=== PATIENT | female | born 1985 | race African-American/Black ===

== ENCOUNTER 2016-12-04 13:47 | Emergency (ER) | payer SELFPAY ==
[~2016-12-04] VITALS: Ht 170.2 cm; Wt 110.0 kg
[2016-12-04 13:57] VITALS: BP 124/80
== END 2016-12-04 16:03 | disposition home or self-care (01) ==
LOC: EDBD → ER 14:02 → EDBD 14:02 → ER 16:03
DX: Z76.0 Encounter for issue of repeat prescription (principal); F20.9 Schizophrenia, unspecified
CPT/HCPCS: 99283

== ENCOUNTER 2016-12-04 19:10 | Emergency (ER) | payer SELFPAY ==
[~2016-12-04] VITALS: Ht 170.2 cm; Wt 80.0 kg
[2016-12-04] MEDS ORDERED: LORAZEPAM 2MG/ML CPJ IV STA (19:29)
[2016-12-04] MEDS ORDERED: SODIUM CHLORIDE 0.9% 1,000 ML IV ONE (19:29)
[2016-12-04] MEDS ORDERED: LORAZEPAM 2MG/ML CPJ IM ONE (19:45)
[2016-12-04 21:15] VITALS: BP 128/76
[2016-12-04] MEDS ORDERED: MIDAZOLAM HCL 2 MG/2 ML VIAL IM ONE (21:15)
[2016-12-04 23:08] LABS: BASOPHILS % 0.3 % (0.0-2.0); EOSINOPHILS % 0.1 % (0.0-5.0); HEMATOCRIT. 34.9 % (36.0-48.0); HEMOGLOBIN. 11.7 g/dL (12.0-16.0); LYMPHOCYTES % 19.9 % (20.0-50.0); MEAN CORPUSCULAR HEMOGLOBIN 29.4 pg (28.0-32.0); MEAN CORPUSCULAR VOLUME 87.7 fL (81.0-99.0); MEAN PLATELET VOLUME 8.9 fl (7.4-10.4); NEUTROPHILS % 68.7 % (40.0-76.0); PLATELET 266 x1000/uL (130-400); RED BLOOD CELL COUNT 3.98 mill/uL (4.2-5.4); RED CELL DISTRIBUTION WIDTH 13.1 % (11.6-14.6)
[2016-12-04 23:13] LABS: INR 1.2; PROTHROMBIN TIME 12.2 sec (9.4-11.6)
[2016-12-04 23:21] LABS: CARBON DIOXIDE 23 mEq/L (21-32); CHLORIDE 112 mEq/L (98-107); ETHANOL BLOOD < 10 mg/dL
[2016-12-04] MEDS ORDERED: POTASSIUM CHLORIDE 20MEQ TABLET SR PO ONE (23:45)
[2016-12-04] MEDS ORDERED: POTASSIUM CHLORIDE INJ 40 MEQ in DEXT 5% WATER 500 ML IV ONE (23:45)
== END 2016-12-05 02:10 | disposition home or self-care (01) ==
LOC: ER 19:10
DX: E87.6 Hypokalemia (principal)
CPT/HCPCS: 36415; 80053; 80307; 80329; 85025; 85610; 96361; 96372; 96374; 99284; G0482; J2060; J2250; J3480; J7030; Z7610; J7060